=== PATIENT | female | born 1990 | race African-American/Black ===

== ENCOUNTER 2025-02-20 10:58 | Emergency (ER) | payer SELFPAY ==
[~2025-02-20] VITALS: Ht 172.7 cm; Wt 72.0 kg
[2025-02-20 11:06] VITALS: O2SAT 98
[2025-02-20] MEDS ORDERED: AMOX1TAB16 MT (13:19)
[2025-02-20 13:49] VITALS: BP 112/85; PULSE 88; RESP 18; TEMP 36.7; O2SAT 98
== END 2025-02-20 13:50 | disposition home or self-care (01) ==
LOC: ER 10:58
DX: S61.254A Open bite of right ring finger without damage to nail, initial encounter (principal); Z53.21 Procedure and treatment not carried out due to patient leaving prior to being seen by health care provider; Y04.1XXA Assault by human bite, initial encounter; Y93.89 Activity, other specified; Y92.89 Other specified places as the place of occurrence of the external cause; Y99.8 Other external cause status
CPT/HCPCS: 99283